=== PATIENT | female | born 1940 | race Caucasian/White ===

== ENCOUNTER → 2017-06-01 | Outpatient (CLI) | payer MEDICARE, BC ==
--- NOTE | 2017-06-02 15:35 | US ---
THYROID ULTRASOUND Clinical information: goiterNontoxic multinodular goiter Patient risk factors: Personal history of thyroid malignancy: None Family history of thyroid malignancy: Unknown Personal history of radiation: Unknown Personal history of endocrine syndrome: Unknown Prior thyroid ultrasound: April 29, 2016 and April 08, 2015 and April 09, 2014 and January 04, 2012 Prior biopsy: None FINDINGS Size right lobe: 5.5 cm craniocaudal, 2.5 cm transverse, 2.2 cm anterior-posterior Size left lobe: 5.9 cm craniocaudal, 3.1 cm transverse, 2.8 cm anterior-posterior Size isthmus: 0.9 cm AP. Estimated total number of nodules greater than or equal to 1 cm: 6 Nodule 1: Size: 2.4 x 1.3 x 1.4 cm Location: right upper Composition: solid/almost completely solid (2) Echogenicity: isoechoic (1) Shape: not [id number]-[id number] (0) Margins: smooth (0) Echogenic foci: none (0) ACR TI-RADS total points: 3. ACR TI-RADS risk category: TR3 Follow-up details: Prior biopsy: No Significant growth: No Change in features: No Change in ACR TI-RADS risk category: No Nodule 2: Size: 2.1 x 1.5 x 1.4 cm Location: left lower submarginal adjacent to TE groove, abuts trachea Composition: solid/almost completely solid (2) Echogenicity: isoechoic (1) Shape: not [id number] (0) Margins: smooth (0) Echogenic foci: none (0) ACR TI-RADS total points: 3. ACR TI-RADS risk category: TR3 Follow-up details: Prior biopsy: No no Significant growth: No Change in features: No Change in ACR TI-RADS risk category: No IMPRESSION: Nodule 1: ACR TI-RADS 2017 3. Recommend: No further follow-up Nodule 2: ACR TI-RADS 2017 3. Recommend: No further follow-up ACR TI-RADS recommendations: TR5 (greater than or equal to 7 points) - FNA if greater than or equal to 1 cm, follow-up if 0.5 - 0.9 cm every year for 5 years TR4 (4-6 points) - FNA if greater than or equal to 1.5 cm, follow-up if 1 - 1.4 cm in 1, 2, 3 and 5 years TR3 (3 points) - FNA if greater than or equal to 2.5 cm, follow -up if 1.5 - 2.4 cm in 1, 3 and 5 years TR2 (2 points) and TR1 (0 points) - No FNA or follow-up * ACR TI-RADS recommends that no more than two nodules with the highest ACR TI-RADS total point should be biopsied and no more than four nodules should be followed. . Electronically signed by: Ronal Berry MD 06/02/2017 3:34 PM CDT
--- NOTE | 2017-06-07 09:03 | MAM ---
EXAM DESCRIPTION: 3D Screening BILATERAL CLINICAL HISTORY: 77 yearsFemaleSCREENING. Hysterectomy. COMPARISON: Digital 2-D bilateral screening study 04/29/2016.. No prior reports available. TECHNIQUE: Bilateral CC and MLO projection full-field images, 3-D tomosynthesis digital mammographic technique. Also bilateral synthesized CC/ MLO full-field images. CAD not utilized. FINDINGS: The breast parenchymal density pattern is: Scattered areas of fibroglandular density. No skin thickening or nipple retraction bilateral solitary microcalcifications. No focal, stellate mass or density, focal asymmetry , and no suspicious microcalcifications bilaterally. Stable mammograms compared to April 2016, taking into account differences in mammographic technique. IMPRESSION: BI-RADS CATEGORY: 2 - BENIGN FINDINGS. FOLLOW UP: Routine digital bilateral screening, one year interval from May 2017. Written communication explaining the findings and follow-up, will be mailed to the patient and referring health care provider. According to the [employer], yearly mammograms are recommended starting at age 40 and continuing as long as a woman is in good health. Any breast change noted on a breast self-exam should be reported promptly to the patient's healthcare provider. Breast MRI is recommended for women with an approximately 20-25% or greater lifetime risk of breast cancer, including women with a strong family history of breast or ovarian cancer and women who have been treated for Hodgkin's disease. A negative mammographic report should not delay tissue diagnosis in patients with significant clinical history or physical findings. Extremely dense breast tissue limits the sensitivity of digital mammography. Electronically signed by: Siddharth Matthews MD 06/07/2017 9:02 AM CDT Workstation: [id number]
== END | disposition home or self-care (01) ==
LOC: US 09:30
PROVIDERS: ATTEND Obstetrics & Gynecology
DX: Z12.31 Encounter for screening mammogram for malignant neoplasm of breast (principal); E04.2 Nontoxic multinodular goiter
CPT/HCPCS: 76536; G0202; G0279

== ENCOUNTER → 2018-11-24 | Outpatient (CLI) | payer MEDICARE, BC | LOC: LAB.O 10:14 | PROVIDERS: ATTEND Physician Assistant | DX: M81.0 Age-related osteoporosis without current pathological fracture (principal); M85.89 Other specified disorders of bone density and structure, multiple sites; M85.88 Other specified disorders of bone density and structure, other site; E55.9 Vitamin D deficiency, unspecified ==